=== PATIENT | female | born 1940 | race Caucasian/White ===

== ENCOUNTER 2017-09-13 06:15 | Day surgery (SDC) | payer MEDICARE, SELFPAY ==
[2017-09-13] VITALS (10 sets, daily range): BP systolic 102–180; BP diastolic 60–120; PULSE 55–85; RESP 16–18; TEMP 36.1–37; O2SAT 95–99; BMI 25.2
--- NOTE | 2017-09-13 06:23 | EKG12_ITS ---
Test Reason : PRE OP Blood Pressure : / mmHG Vent. Rate : 052 BPM Atrial Rate : 052 BPM P-R Int : 178 ms QRS Dur : 078 ms QT Int : 436 ms P-R-T Axes : 077 -26 054 degrees QTc Int : 405 ms Sinus bradycardia Leftward axis Inferior NH, age undetermined, cannot be excluded Confirmed by JUAN MANUEL CRUZ, CECILIO ([id number]), order editor ENRIQUE CAZARES ([id number] on 09/14/2017 1:45:53 PM Referred By: Kurt Jon Confirmed By:CECILIO ZAMBRANO MD
[2017-09-13] MEDS: Cefazolin 2 GM in 0.9% Normal Saline 100 ML IV (07:48)
[2017-09-13] MEDS: Bupivacaine Mpf 0.5% 30 ML VIAL (10:55)
--- NOTE | 2017-09-13 10:57 | PCM.DC.HER ---
Discharge Diet: Light diet - advance as tolerated Discharge Activity: Return to Normal Activity, May Not Drive - for 2-3 days or while taking narcotic pain meds., May Shower - with the bandage in place 1-2 days after surgery. Lifting Restrictions: 20 pounds for 4 weeks. Additional Activity Instructions:: Climbing stairs is fine, walking is encouraged. Sitting in bed may be uncomfortable. Sitting up using your lateral muscles (sitting up sideways) is usually more comfortable. Do not drive, work heavy equipment of sign legal documents for 24 hours. Pain medications may cause nausea, you should typically eat light foods as you take your pain medications. Pain medications may also cause constipation. If you have difficulty with this, discuss with your doctor. Call your doctor if your incision/area has: Continuous Slow Oozing, Sudden Increased Bleeding, Increased Pain/ Swelling, Increased Redness, Foul Smelling Discharge Call your doctor if you observe: Fever of 101 or Higher Suture Line Care: Avoid Pulling/Pushing, Avoid Pinching/Bending Change Dressing in (Days):: 3 - Leave steri-strips for 1 week. May protect with a guaze bandaid. Cleanse incision/area with: Keep Dressing Clean & Dry Allergies/Adverse Reactions: Allergies No Known Allergies Allergy (Verified 09/06/17 08:58) Medications to take at Discharge aspirin 81 mg tablet,delayed release 81 mg PO QDAY tab 08/27/17 atenolol 50 mg tablet 50 mg PO QDAY 08/27/17 atorvastatin 20 mg tablet 20 mg PO QDAY 08/27/17 calcium carbonate 600 mg calcium (1,500 mg) tablet 600 mg PO BID tab 08/27/17 cholecalciferol (vitamin D3) 1,000 unit capsule 1,000 unit PO BID cap 08/27/17 glucosamine 375 az-hlqmktayy-zkz no1 500 mg-C 15 mg-naresh 0.5 mg tablet 1 tab PO DAILY 08/27/17 omega 5-mkj-ygp-fish oil 1,000 mg (120 mg-180 mg) capsule 1 cap PO BID 08/27/17 oxybutynin chloride ER 5 mg tablet,extended release 24 hr 5 mg PO QDAY 08/27/17 Hydrocodone Bitart/Apap 5-325 [[place] 5MG-325MG] 1 - 2 tablet PO Q4H PRN PRN 7 Days #10 tablet 09/13/17 The following prescriptions were given: Hydrocodone Bitart/Apap 5-325 [[place] 5MG-325MG] 1 - 2 tablet PO Q4H PRN PRN 7 Days #10 tablet PRN Reason: Pain Primary Care Physician: Daya Parker MD [Primary Care Provider] - Please Follow Up With: Kurt Jon MD When: Please call to schedule 2 week follow up appointment. [phone]
--- NOTE | 2017-09-13 13:06 | PCM.OPRPT ---
Problem List (1) Incarcerated left inguinal hernia Status: Acute (2) Umbilical hernia Status: Acute Qualifiers: Obstruction and gangrene presence: without obstruction or gangrene Qualified Code(s): K42.9 - Umbilical hernia without obstruction or gangrene Report of Operation Date of Procedure: 09/13/17 Pre-Operative Diagnosis: Incarcerated left inguinal hernia Post-Operative Diagnosis: 1. Incarcerated left inguinal hernia. 2. Umbilical hernia Surgery/Procedure Performed:: 1. Robotic assisted laparoscopic left inguinal hernia repair with mesh. 2. Umbilical hernia repair Description of Procedure: The patient was brought back to the operating room and general anesthesia was induced. The patient's abdomen was prepped and draped in usual sterile fashion. Next a midline incision was made superior to the umbilicus and deepened to the fascia. The fascia was elevated and a Veress needle was placed into the abdomen. A drop test was performed and was normal. Next the abdomen was insufflated to 15 mmHg. The needle was then removed and the port was placed through this incision. The camera was then placed through the port and the abdomen was inspected. There appeared to be a recurrence of her umbilical hernia which was repaired in the past as well as adhesions in this area. A left and right lateral 8 mm port were placed under direct visualization. Next moving the camera to 1 of these lateral ports I was able to sharply dissect the adhesions in the midline down as well as reduce the umbilical hernia. The patient was then placed in steep Trendelenburg position. The robot was then docked. Next attention was paid the left lower quadrant. The patient did have a left inguinal hernia which had colon inside of it which was not reducible. The peritoneum was incised superior to the hernia and dissected free until the hernia was reached. Next the hernia was slowly reduced dissecting the hernia sac free from all sides until the colon was able to be reduced into the abdomen. Once the direct hernia was dissected free the round ligament was dissected free. A clip was placed on either side and the round ligament was divided. This allowed a good pocket for the mesh with no contents left in the hernia. Next a piece of pro-competitive shopper mesh was placed into the abdomen and trimmed and placed in the left inguinal region. This was unfolded and provided good coverage of the hernia. The peritoneum was then reapproximated using a running 3-0 V lock suture. This allowed for complete coverage of the mesh with peritoneum. The robot was then undocked. Next attention was paid to the umbilical hernia. A small neeru was made inferior to the umbilicus and using a Charli Wilkes needle a 0 Vicryl suture was used in a gyfuuo-yw-vlviu fashion to close the umbilical defect. Next the midline port was removed and using a Charli Wilkes needle and 0 Vicryl suture was used to provide an interrupted fascial closure of the midline port site. Next the 2 lateral ports were removed and all incisions were anesthetized with lidocaine and closed with interrupted 4-0 Monocryl sutures as well as Steri-Strips and bandages. The patient was taken to PACU in stable condition and she tolerated the procedure well.
--- NOTE | 2017-09-13 13:14 | OP.PCM_ITS ---
Problem List (1) Incarcerated left inguinal hernia Status: Acute (2) Umbilical hernia Status: Acute Qualifiers: Obstruction and gangrene presence: without obstruction or gangrene Qualified Code(s): K42.9 - Umbilical hernia without obstruction or gangrene Report of Operation Date of Procedure: 09/13/17 Pre-Operative Diagnosis: Incarcerated left inguinal hernia Post-Operative Diagnosis: 1. Incarcerated left inguinal hernia. 2. Umbilical hernia Surgery/Procedure Performed:: 1. Robotic assisted laparoscopic left inguinal hernia repair with mesh. 2. Umbilical hernia repair Description of Procedure: The patient was brought back to the operating room and general anesthesia was induced. The patient's abdomen was prepped and draped in usual sterile fashion. Next a midline incision was made superior to the umbilicus and deepened to the fascia. The fascia was elevated and a Veress needle was placed into the abdomen. A drop test was performed and was normal. Next the abdomen was insufflated to 15 mmHg. The needle was then removed and the port was placed through this incision. The camera was then placed through the port and the abdomen was inspected. There appeared to be a recurrence of her umbilical hernia which was repaired in the past as well as adhesions in this area. A left and right lateral 8 mm port were placed under direct visualization. Next moving the camera to 1 of these lateral ports I was able to sharply dissect the adhesions in the midline down as well as reduce the umbilical hernia. The patient was then placed in steep Trendelenburg position. The robot was then docked. Next attention was paid the left lower quadrant. The patient did have a left inguinal hernia which had colon inside of it which was not reducible. The peritoneum was incised superior to the hernia and dissected free until the hernia was reached. Next the hernia was slowly reduced dissecting the hernia sac free from all sides until the colon was able to be reduced into the abdomen. Once the direct hernia was dissected free the round ligament was dissected free. A clip was placed on either side and the round ligament was divided. This allowed a good pocket for the mesh with no contents left in the hernia. Next a piece of pro-alarm signaler mesh was placed into the abdomen and trimmed and placed in the left inguinal region. This was unfolded and provided good coverage of the hernia. The peritoneum was then reapproximated using a running 3-0 V lock suture. This allowed for complete coverage of the mesh with peritoneum. The robot was then undocked. Next attention was paid to the umbilical hernia. A small neeru was made inferior to the umbilicus and using a Charli Wilkes needle a 0 Vicryl suture was used in a givuzh-be-fgrvk fashion to close the umbilical defect. Next the midline port was removed and using a Charli Wilkes needle and 0 Vicryl suture was used to provide an interrupted fascial closure of the midline port site. Next the 2 lateral ports were removed and all incisions were anesthetized with lidocaine and closed with interrupted 4-0 Monocryl sutures as well as Steri- Strips and bandages. The patient was taken to PACU in stable condition and she tolerated the procedure well.
[2017-09-13] MEDS: HYDROcodone Bitartrate/Apap 5/325 Tablet PO (14:37)
== END 2017-09-13 15:55 | disposition home or self-care (01) ==
LOC: SDC 06:15 → AC 06:17
PROVIDERS: Family Provider Family Medicine; PCP Family Medicine; Visit Provider Surgery
PROC: 0YQ64ZZ Repair Left Inguinal Region, Percutaneous Endoscopic Approach (ICD-10-PCS; CPT 49585; principal; 2017-09-13 07:40)
DX: K40.30 Unilateral inguinal hernia, with obstruction, without gangrene, not specified as recurrent (principal); K42.9 Umbilical hernia without obstruction or gangrene; E78.00 Pure hypercholesterolemia, unspecified; I10 Essential (primary) hypertension; Z78.0 Asymptomatic menopausal state; Z90.49 Acquired absence of other specified parts of digestive tract; Z79.82 Long term (current) use of aspirin; Z79.899 Other long term (current) drug therapy
CPT/HCPCS: 49585; 49650; 93005; J7120; J2405

== ENCOUNTER → 2017-11-13 15:52 | Outpatient (CLI) | payer MEDICARE, SELFPAY ==
--- NOTE | 2017-11-13 15:54 | CT_ITS ---
STUDY: CT ABDOMEN AND PELVIS WITH CONTRAST REASON FOR EXAM: Female, 77 years old. LEFT GROIN MASS SINCE HERNIA REPAIR X2 MONTHS AGO SURG-BILAT HERNIA REPAIR RADIATION DOSAGE (If Supplied By Facility): CTDIvol = ( 19.09 ) mGy, DLP = ( 1085.41 ) mGycm TECHNIQUE: Transaxial images were obtained from the dome of the diaphragm to the symphysis pubis with oral contrast. 100CC ml of Isovue 300 contrast was administered. Sagittal and coronal images were reconstructed. Individualized dose optimization techniques were used for this CT. COMPARISON: None. FINDINGS: The visualized lung bases are unremarkable. The visualized portions of the heart are within normal limits. Normal liver. The gallbladder is surgically absent. There is intrahepatic ductal dilation. There is dilation of the common bile duct. Common bile duct stone is not seen. Findings are likely related to the cholecystectomy. Normal spleen. There is diffuse atrophy of the pancreas. Normal bilateral adrenal glands. Normal right kidney. Normal left kidney. Normal visualized stomach. Normal small intestine. There are multiple colonic diverticula consistent with diverticulosis. Stool throughout the colon. There is non-visualization of the appendix. There are calcifications of the abdominal aorta and vascular structures. This is consistent for atherosclerotic disease. There is no abdominal aortic aneurysm. Normal inferior vena cava. Subcentimeter mesenteric lymph nodes. Normal urinary bladder. There is atrophy of the uterus. There is a rim-enhancing septated cystic lesion in the left inguinal canal measuring 30 x 33 x 27 mm. This is 15 Hounsfield units. There are degenerative changes of the osseous structures. CT/Abdomen/Pelvis WITH Contrast IMPRESSION: In the left internal canal there is a fluid collection. Differential includes organized hematoma, seroma, or abscess. Other findings as above. Electronically Signed: Gabe Ashton MD at 20:11 EDT , Service support ,
[2017-11-13 16:20] LABS: CREATININE FINGERSTICK 0.6 mg/dL (0.55-1.02); EGFR FINGERSTICK > 60.0000 mL/min (>60)
== END ==
PROVIDERS: Family Provider Family Medicine; PCP Family Medicine; Visit Provider Surgery
DX: R19.00 Intra-abdominal and pelvic swelling, mass and lump, unspecified site (principal)
CPT/HCPCS: 74177; Q9967

== ENCOUNTER → 2018-09-03 | Outpatient (CLI) | payer MEDICARE, SELFPAY ==
[2017-09-13 06:39] VITALS: BMI 25.2
[2018-09-03 13:31] LABS: BUN 22 mg/dL (7-18); Creatinine, Serum 0.77 mg/dL (0.55-1.02); Glucose 92 mg/dL (74-106)
[2018-09-03 13:32] LABS: AST(SGOT) 26 U/L (15-37); Alanine Aminotransfer ALT/SGPT 38 U/L (13-56); Anion Gap 3 (5-15); BUN/Creat Ratio 28.5 RATIO (10-20); Chloride 108 mmol/L (98-107); Cholesterol 174 mg/dL (200); EST Glomerular Filtration Rate 77 mL/min (>60); Est Glom Filt Rate - Afr Amer 93 mL/min (>60); High Density Lipoprotein 71 mg/dL; Potassium 4.3 mmol/L (3.5-5.1); Sodium Level 139 mmol/L (136-145); Triglycerides 134 mg/dL; Very Low Density Lipoprotein 27 mg/dL (5-40)
== END | disposition home or self-care (01) ==
PROVIDERS: Family Provider Family Medicine; PCP Family Medicine; Referring Provider Family Medicine; Visit Provider Family Medicine
DX: E78.5 Hyperlipidemia, unspecified (principal); I10 Essential (primary) hypertension
CPT/HCPCS: 36415; 80048; 80061; 84450; 84460

== ENCOUNTER → 2019-12-11 08:13 | Outpatient (CLI) | payer MEDICARE, SELFPAY ==
[2017-09-13 06:39] VITALS: BMI 25.2
[2019-12-11 10:38] LABS: BUN 19 mg/dL (7-18); Creatinine, Serum 0.96 mg/dL (0.55-1.02); Glucose 102 mg/dL (74-106)
[2019-12-11 10:39] LABS: AST(SGOT) 18 U/L (15-37); Alanine Aminotransfer ALT/SGPT 25 U/L (13-56); Anion Gap 5 (5-15); BUN/Creat Ratio 19.8 RATIO (10-20); Chloride 108 mmol/L (98-107); Cholesterol 158 mg/dL (200); EST Glomerular Filtration Rate 60 mL/min (>60); Est Glom Filt Rate - Afr Amer 72 mL/min (>60); High Density Lipoprotein 60 mg/dL; Potassium 4.3 mmol/L (3.5-5.1); Sodium Level 142 mmol/L (136-145); Triglycerides 135 mg/dL; Very Low Density Lipoprotein 27 mg/dL (5-40)
== END ==
PROVIDERS: PCP Family Medicine; Referring Provider Family Medicine; Visit Provider Family Medicine
DX: E78.5 Hyperlipidemia, unspecified (principal); I10 Essential (primary) hypertension
CPT/HCPCS: 36415; 80048; 80061; 84450; 84460

== ENCOUNTER → 2020-03-17 14:05 | Outpatient (CLI) | payer MEDICARE, SELFPAY ==
[2017-09-13 06:39] VITALS: BMI 25.2
[2020-03-19 07:19] LABS: SARS-COV-2 TOTAL ABS Nonreactive (Nonreactive)
== END ==
PROVIDERS: PCP Family Medicine; Referring Provider Family Medicine; Visit Provider Family Medicine
DX: Z20.828 Contact with and (suspected) exposure to other viral communicable diseases (principal)
CPT/HCPCS: 36415; 86769

== ENCOUNTER → 2020-03-30 10:36 | Outpatient (CLI) | payer MEDICARE, SELFPAY ==
--- NOTE | 2020-03-30 10:43 | BD_ITS ---
STUDY: DUAL ENERGY X-RAY ABSORPTIOMETRY / DXA REASON FOR EXAM: Female, 79 years old. 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 COMPARISON: Comparison is made with prior study dated 04/06/2016. FINDINGS: Lumbar Spine (L1-L4): g/cm2 (1.149) / T-score (-0.1) / Z-score (1.7) Findings are suggestive of normal bone density with a low fracture risk. Increased thoracic kyphosis. Left Femur Total: g/cm2 (0.839) / T-score (-1.3) / Z-score (0.7) Left Femoral Neck: g/cm2 (0.867) / T-score (-1.2) / Z-score (0.9) Right Femur Total: g/cm2 (0.807) / T-score (-1.6) / Z-score (0.4) Right Femoral Neck: g/cm2 (0.787) / T-score (-1.8) / Z-score (0.4) The T-Scores on the most recent prior examination were: Lumbar Spine (L1-L4): There has been improvement of bone density since the previous examination. Left Femur Total: which represents a worsening of 1.1%. Right Femur Total: which represents a worsening of 2.9%. BD/Dexa Bone Density Study IMPRESSION: The patient is considered osteopenic as outlined below according to World Jose Organization (WHO) criteria with a moderate fracture risk. There has been worsening of bone density since the previous examination. Reference Information: The T-score is the number of standard deviations above or below the standard which is normal for young adults at their peak bone mineral density. The World Health Organization (WHO) interprets the T-scores as follows: Above -1 Normal bone density Between -1 and -2.5 Osteopenia Equal to / or below -2.5 Osteoporosis As a practical clinical guideline, osteopenia may be graded as follows: Mild -1 through -1.5 Moderate -1.6 through -2.0 Severe -2.1 through -2.4 The Z-score is the number of standard deviations above or below age-matched controls. A Z-score of less than -1.5 would be considered abnormal. References: 1. NIH Osteoporosis and Related Bone Diseases www osteo.org 2. International Society for Clinical Densitometry www iscd.org 3. National Osteoporosis Foundation www nof.org Electronically Signed: Kevin Keyes, at 9:07 EST , Service support ,
== END ==
PROVIDERS: PCP Family Medicine; Referring Provider Family Medicine; Visit Provider Family Medicine
DX: N95.9 Unspecified menopausal and perimenopausal disorder (principal)
CPT/HCPCS: 77080

== ENCOUNTER 2020-04-27 16:42 | Emergency (ER) | payer MEDICARE, SELFPAY ==
[2020-04-27] VITALS (7 sets, daily range): BP systolic 137–190; BP diastolic 68–95; PULSE 65–79; RESP 15–17; TEMP 35.9; O2SAT 95–98; BMI 29.2
--- NOTE | 2020-04-27 16:45 | ED.RN ---
FAMILY, SON WATSON PHONE NUMBER [phone]
--- NOTE | 2020-04-27 16:58 | EKG12_ITS ---
Test Reason : COUGH Blood Pressure : / mmHG Vent. Rate : 067 BPM Atrial Rate : 067 BPM P-R Int : 154 ms QRS Dur : 070 ms QT Int : 390 ms P-R-T Axes : 052 -13 046 degrees QTc Int : 412 ms Normal sinus rhythm Possible Inferior infarct , age undetermined Abnormal ECG Confirmed by ROSY CRUZ, LAUREANO ([id number]), editor at large LAURA BOYER ([id number]) on 04/28/2020 1:41:33 PM Referred By: Confirmed By:BERNARD GALLEGOS MD
--- NOTE | 2020-04-27 16:58 | ED.DCSUM_ITS ---
History of Present Illness Chief Complaint: Cough Narrative: This patient is an 79-year-old female who states she just does not feel good. She has had generalized malaise for about 1 day. She states she feels like she has the flu. She does complain of muscle and joint aches. She has mild rhinorrhea and a mild cough. No fever. No sore throat. No chest pain or difficulty breathing. No nausea vomiting or diarrhea. No abdominal pain. Past Medical History - Allergies and Home Meds Allergies/Adverse Reactions: Allergies No Known Allergies Allergy (Verified 04/27/20 16:42) Primary Care Physician: Daya Parker MD [Primary Care Provider] - Past Medical History: - - Hypertension, hyperlipidemia Smoking Status: Never smoker Review of Systems All systems negative except as indicated General: Denies: Fever Eyes: Denies: Visual changes - bilaterally ENT: Reports: Rhinorrhea. Denies: Bilateral ear pain Cardiovascular: Denies: Chest pain Respiratory: Reports: Cough. Denies: Dyspnea Gastrointestinal: Denies: Abdominal pain, Nausea, Vomiting, Diarrhea Musculoskeletal: Reports: Myalgias, Arthralgias Skin: Denies: Rash Neurological: Denies: Headache Hematologic: Denies: Easy bruising Allergy: Denies: Uticaria Physical Exam Vital Signs/Narrative: Vital Signs Temp Pulse Resp BP Pulse Ox 04/27/20 16:43 96.6 F L 72 17 184/87 H 95 Inital Vital Signs reviewed: Yes General: Well nourished Head: Normocephalic Eyes: EOMI ENT: Moist mucous membranes Neck: Supple Cardiovascular: Regular rate, Regular rhythm Respiratory: No distress, CTA bilaterally Abdomen: Soft, Nontender Skin: Normal color Neurological: Alert Psychological: Normal affect Diagnostic/Tx/Re-eval Impressions Chest X-Ray 04/27/20 17:10 IMPRESSION: No definite acute or significant abnormality seen. Electronically Signed: Olaf Villanueva MD at 17:32 EST , Service support , 04/27/20 17:10 Chest 1 View (Portable) [RAD] Stat 04/27/20 17:15 Mucosa - Nose SARS-CoV-2 Antigen (Rapid) - Final Laboratory Results 04/27/20 04/27/20 04/27/20 17:25 17:25 17:30 WBC 6.2 RBC 4.16 L Hgb 13.2 Hct 39.5 MCV 95.0 MCH 31.7 MCHC 33.4 RDW Std Deviation 48.3 H RDW Coeff of Blanca 13.8 Plt Count 217 MPV 10.3 Immature Gran % (Auto) 0.500 Neut % (Auto) 74.5 H Lymph % (Auto) 15.4 L [place] % (Auto) 8.6 Eos % (Auto) 0.5 Baso % (Auto) 0.5 Absolute Neuts (auto) 4.6 Absolute Lymphs (auto) 0.95 Nucleated RBC % 0 Sodium 135 L Potassium 3.6 Chloride 104 Carbon Dioxide 26.0 Anion Gap 5 BUN 18 Creatinine 0.96 Estim Creat Clear Calc 42.06 Est GFR (MDRD) Af Amer 72 Est GFR (MDRD) Non-Af 60 BUN/Creatinine Ratio 18.8 Glucose 99 Calcium 9.4 Total Bilirubin 0.40 AST 24 ALT 27 Alkaline Phosphatase 111 Total Protein 7.6 Albumin 3.7 Globulin 3.9 Albumin/Globulin Ratio 0.9 Urine Color Yellow Urine Clarity Clear Urine pH 6.5 Ur Specific [place] 1.010 Urine Protein Negative Urine Glucose (UA) Normal Urine Ketones Negative Urine Occult Blood Negative Urine Nitrite Positive H Urine Bilirubin Negative Urine Urobilinogen Normal Ur Leukocyte Esterase 100 H Urine RBC 0 SEEN Urine WBC 0-5 SEEN Ur Squamous Epith Cells 0-5 SEEN Urine Bacteria 2+ Urine Mucus 0 SEEN - Medical Decision Making EKG shows normal sinus rhythm no acute ischemic changes. Serum labs essentially unremarkable. Urinalysis does show leukocyte esterase and nitrites and bacteria. She was given IV Rocephin and cultures were obtained. Patient will be discharged on Keflex. She does understand return for new or worsening symptoms and was advised on specific signs and symptoms to monitor for. Patient was discharged. ED Disposition - Plan for ED Patient: Disposition: Home or Assisted Living Diagnosis: UTI (urinary tract infection) Instructions: ED Bladder Infection, Female (Adult) Prescriptions: Cephalexin [Keflex] 500 mg PO Q12 #14 cap Prescription Printed Referrals: Daya Parker MD [Primary Care Provider] -
--- NOTE | 2020-04-27 17:10 | RAD_ITS ---
STUDY: X-RAY CHEST REASON FOR EXAM: Female, 79 years old. COUGH, CHILLS, ACHES AND WEAKNESS SINCE YESTERDAY TECHNIQUE: Single AP portable view of the chest. I COMPARISON: None. FINDINGS: Limited by significant rotation to the left. The lungs are clear and expanded. There is no demonstrated pleural abnormality. Normal size heart. Normal mediastinum and raghav. Normal visualized pulmonary arteries. Normal visualized aortic arch and descending thoracic aorta. Normal visualized thoracic spine. Normal visualized ribs, clavicles, and shoulders. There is no demonstrated abnormality of the visualized soft tissue structures of the upper abdomen. RAD/Chest 1 View (Portable) IMPRESSION: No definite acute or significant abnormality seen. Electronically Signed: Olaf Villanueva MD at 17:32 EST , Service support ,
[2020-04-27 17:38] LABS: Mucous, Urine 0 SEEN /hpf (<or=2+); Red Blood Cells-Urine 0 SEEN /hpf (0-5)
[2020-04-27 17:39] LABS: Color, Urine Yellow (Yellow); Glucose, Dipstick Normal (Normal); Ketone-Dipstick Negative (Negative); Leukocyte Esterase-Dipstick 100 /ul (Negative); Nitrite-Dipstick Positive (Negative); Occult Blood-Urine Negative /ul (Negative); Protein-Dipstick Negative (Negative); Urine Bilirubin Dipstick Negative (Negative); Urine Clarity Clear (Clear); Urine Urobilinogen Normal (Normal); Urine pH 6.5 (5.0 - 8.0)
[2020-04-27 17:39] LABS: Absolute Lymphocyte Count 0.95 X10^3/uL (0.83-4.51); Absolute Neutrophil Count 4.6 X10^3/uL (2.0-7.7); Basophil# 0.03 X10^3/uL; Basophil% 0.5 % (0-1); Eosinophil# 0.03 X10^3/uL; Eosinophils% 0.5 % (0-5); Hematocrit 39.5 % (37-47); Hemoglobin 13.2 g/dL (12.0-15.0); Lymphocyte # 0.95 X10^3/ul (4.0); Lymphocyte % 15.4 % (19-41); Mean Corp Hgb Conc 33.4 g/dL (32-36); Mean Corpuscular Hgb 31.7 pg (27.0-32.0); Mean Platelet Vol. 10.3 fl (6.2-12.0); Monocyte# 0.53 X10^3/uL; Monocyte% 8.6 % (0-10); NRBC Flagged by Analyzer 0 % (0-5); Neutrophil # 4.59 X10^3/uL (2.7-7.7); Neutrophil % 74.5 % (47-70); Platelet Count 217 K/mm3 (150-450); RBC Distribution Width CV 13.8 % (11.6-14.6); RBC Distribution Width SD 48.3 fl (35.1-43.9); Red Blood Count 4.16 M/mm3 (4.2-5.4); White Blood Count 6.2 K/mm3 (4.4-11.0)
[2020-04-27 18:06] LABS: Bacteria 2+ /hpf (None Seen); Squamous Epithelial Cells - UA 0-5 SEEN /hpf (5-10); White Blood Cells 0-5 SEEN /hpf (0-5)
[2020-04-27 18:42] LABS: BUN 18 mg/dL (7-18); Creatinine, Serum 0.96 mg/dL (0.55-1.02); EST Glomerular Filtration Rate 60 mL/min (>60); Estimated Creatinine Clearance 42.06 ml/min; Glucose 99 mg/dL (74-106)
[2020-04-27 18:43] LABS: ALB/GLOB Ratio 0.9 RATIO (0.9-2.4); AST(SGOT) 24 U/L (15-37); Alanine Aminotransfer ALT/SGPT 27 U/L (13-56); Albumin, Serum 3.7 g/dL (3.2-5.0); Alkaline Phosphatase 111 U/L (45-117); Anion Gap 5 (5-15); BUN/Creat Ratio 18.8 RATIO (10-20); Calcium,Total 9.4 mg/dL (8.5-10.1); Chloride 104 mmol/L (98-107); Est Glom Filt Rate - Afr Amer 72 mL/min (>60); Globulin 3.9 g/dL (2.2-4.2); Potassium 3.6 mmol/L (3.5-5.1); Protein, Total 7.6 g/dL (6.4-8.2); Sodium Level 135 mmol/L (136-145)
[2020-04-27] MEDS: Ceftriaxone 1 GM/50 ML BAG IV (18:59)
== END 2020-04-27 19:44 | disposition home or self-care (01) ==
PROVIDERS: Emergency Provider Emergency Medicine; PCP Family Medicine
DX: N39.0 Urinary tract infection, site not specified (principal); I10 Essential (primary) hypertension; E78.5 Hyperlipidemia, unspecified; Z79.82 Long term (current) use of aspirin
CPT/HCPCS: 71045; 80053; 81001; 85025; 87077; 87086; 87088; 87186; 87426; 93005; 96365; 99282; J7050

== ENCOUNTER → 2020-05-05 15:45 | Outpatient (CLI) | payer MEDICARE, SELFPAY ==
[2020-04-27 16:43] VITALS: BMI 29.2
[2020-05-05 18:09] LABS: Absolute Lymphocyte Count 0.71 X10^3/uL (0.83-4.51); Basophil# 0.02 X10^3/uL; Basophil% 0.4 % (0-1); Eosinophil# 0.02 X10^3/uL; Eosinophils% 0.4 % (0-5); Hematocrit 42.1 % (37-47); Hemoglobin 13.9 g/dL (12.0-15.0); Lymphocyte # 0.71 X10^3/ul (4.0); Lymphocyte % 13.4 % (19-41); Mean Corpuscular Hgb 30.9 pg (27.0-32.0); Mean Corpuscular Volume 93.6 fL (81-99); Mean Platelet Vol. 11.3 fl (6.2-12.0); Monocyte# 0.51 X10^3/uL; Monocyte% 9.6 % (0-10); NRBC Flagged by Analyzer 0 % (0-5); Neutrophil # 3.99 X10^3/uL (2.7-7.7); Neutrophil % 75.4 % (47-70); Platelet Count 200 K/mm3 (150-450); RBC Distribution Width CV 13.7 % (11.6-14.6); RBC Distribution Width SD 46.7 fl (35.1-43.9); White Blood Count 5.3 K/mm3 (4.4-11.0)
[2020-05-05 18:16] LABS: Anion Gap 10 (5-15); BUN 24 mg/dL (7-18); BUN/Creat Ratio 16.3 RATIO (10-20); Calcium,Total 8.7 mg/dL (8.5-10.1); Chloride 104 mmol/L (98-107); Creatinine, Serum 1.47 mg/dL (0.55-1.02); EST Glomerular Filtration Rate 36 mL/min (>60); Est Glom Filt Rate - Afr Amer 44 mL/min (>60); Glucose 123 mg/dL (74-106); Potassium 3.6 mmol/L (3.5-5.1); Sodium Level 135 mmol/L (136-145)
== END ==
PROVIDERS: PCP Family Medicine; Referring Provider Family Medicine; Visit Provider Family Medicine
DX: R19.7 Diarrhea, unspecified (principal)
CPT/HCPCS: 36415; 80048; 85025

== ENCOUNTER 2020-06-28 01:25 | Emergency (ER) | payer MEDICARE, SELFPAY ==
[2020-04-27 16:43] VITALS: BMI 29.2
[2020-06-28 01:25] VITALS: PULSE 66; RESP 18; TEMP 36.4; O2SAT 97; BMI 27.2
--- NOTE | 2020-06-28 01:43 | CT_ITS ---
STUDY: CT ABDOMEN AND PELVIS WITH CONTRAST REASON FOR EXAM: Female, 79 years old. Right lower quadrant pain for one day. RADIATION DOSAGE (If Supplied By Facility): CTDIvol = ( 13.33 ) mGy, DLP = ( 784.72 ) mGycm TECHNIQUE: Transaxial images were obtained from the dome of the diaphragm to the symphysis pubis without oral contrast. IV 100mL Isovue-370 was administered. Sagittal and coronal images were reconstructed. Individualized dose optimization techniques were used for this CT. COMPARISON: November 13, 2017. FINDINGS: The visualized lung bases are unremarkable. The visualized portions of the heart are within normal limits. Normal liver. There are surgical clips in the gallbladder fossa consistent with a prior cholecystectomy. Normal spleen. Normal pancreas. Normal bilateral adrenal glands. Normal right kidney. Normal left kidney. Normal visualized stomach. Normal small intestine. Stool is present throughout the colon which may represent constipation. Scattered colonic diverticulosis. Appendix not visualized. Appearance of the abdomen does not suggest acute appendicitis. There is atherosclerotic calcification of the abdominal aorta, without a demonstrated aneurysm. Normal inferior vena cava. Normal retroperitoneum. No intra-abdominal free air. Normal urinary bladder. Uterus is grossly normal. No adnexal masses seen. Normal abdominal wall. Degenerative changes of the lower thoracic and lumbar spine. CT/Abdomen/Pelvis W IV Cont ONLY IMPRESSION: No acute findings or pelvis. Appendix not visualized. No secondary signs of acute appendicitis. Consider constipation. Mild colonic diverticulosis. Electronically Signed: Cristian Brar MD at 3:11 EST , Service support ,
--- NOTE | 2020-06-28 01:46 | EKG12_ITS ---
Test Reason : ABDOMINAL PAIN Blood Pressure : / mmHG Vent. Rate : 060 BPM Atrial Rate : 060 BPM P-R Int : 176 ms QRS Dur : 088 ms QT Int : 406 ms P-R-T Axes : 063 -20 043 degrees QTc Int : 406 ms Normal sinus rhythm Possible Left atrial enlargement Possible Inferior infarct , age undetermined Abnormal ECG Confirmed by ANUPAMA CRUZ, JES ([id number]), editor index LAURA BOYER ([id number]) on 06/28/2020 1:17:15 PM Referred By: VERONA Confirmed By:JES ALTMAN MD
[2020-06-28 01:53] LABS: Absolute Lymphocyte Count 1.78 X10^3/uL (0.83-4.51); Absolute Neutrophil Count 5.1 X10^3/uL (2.0-7.7); Basophil# 0.06 X10^3/uL; Basophil% 0.8 % (0-1); Eosinophil# 0.27 X10^3/uL; Eosinophils% 3.5 % (0-5); Hematocrit 41.3 % (37-47); Hemoglobin 13.3 g/dL (12.0-15.0); Lymphocyte # 1.78 X10^3/ul (4.0); Mean Corp Hgb Conc 32.2 g/dL (32-36); Mean Corpuscular Hgb 31.1 pg (27.0-32.0); Mean Corpuscular Volume 96.7 fL (81-99); Mean Platelet Vol. 9.9 fl (6.2-12.0); Monocyte# 0.52 X10^3/uL; Monocyte% 6.7 % (0-10); NRBC Flagged by Analyzer 0 % (0-5); Neutrophil # 5.08 X10^3/uL (2.7-7.7); Neutrophil % 65.7 % (47-70); Platelet Count 280 K/mm3 (150-450); RBC Distribution Width CV 14.6 % (11.6-14.6); RBC Distribution Width SD 51.7 fl (35.1-43.9); Red Blood Count 4.27 M/mm3 (4.2-5.4); White Blood Count 7.7 K/mm3 (4.4-11.0)
[2020-06-28] MEDS: 0.9% Normal Saline 1,000 ML 125 ML IV (01:59)
[2020-06-28] MEDS: Morphine 4 MG/ML Syringe IV (01:59)
--- NOTE | 2020-06-28 02:05 | ED.DCSUM_ITS ---
History of Present Illness Chief Complaint: Abd Pain Informant: Patient - Abdominal Pain/Flank Pain Onset: Today Context: Gradual Onset Timing: Continuous Quality: Sharp Location: RLQ - Nausea/Vomiting/Emesis GI Symptom: Negative for: Nausea, Vomiting - Diarrhea/Melena/Hematochezia GI Symptom: Negative for: Diarrhea, Melena, Hematochezia Associated Symptoms: Negative for: Dysuria, Frequency Narrative: Patient is an 79-year-old female presenting with abdominal pain. Stated it started around 10 AM this morning and progressively worsened. She states it is worse when she is active. Patient try to go to bed tonight but the pain was too severe so she came to the emergency room. She states it is mostly on her right side and specifically in her right lower quadrant. She states when she was driving here any bumps in the road significantly worsen the pain. She denies any associated fever, chills, chest pain, shortness of breath, nausea, vomiting or change in bowel habits. States she has had normal urination. States she is never had pain like this before. Does have a history of hernia as well as gallbladder surgery. No other complaints at this time. Past Medical History - Allergies and Home Meds Allergies/Adverse Reactions: Allergies meperidine [From Demerol] Allergy (Verified 06/28/20 01:29) Hives Primary Care Physician: Kurt Jon MD [STAFF PHYSICIAN] - Daya Parker MD [Primary Care Provider] - Past Medical History: - - Hypertension, hyperlipidemia Surgical History: cholecystectomy, herniorrhaphy Lives: Spouse/ Significant Other Smoking Status: Never smoker Review of Systems General: Denies: Chills, Fever, Sweats Eyes: Denies: Visual changes - bilaterally, Diplopia ENT: Denies: Rhinorrhea, Sore throat Cardiovascular: Denies: Chest pain, Palpitations Respiratory: Denies: Dyspnea, Cough, Dyspnea on exertion Gastrointestinal: Reports: Abdominal pain. Denies: Nausea, Vomiting, Diarrhea, Melena, Hematochezia Genitourinary: Denies: Dysuria, Hematuria, Frequency Musculoskeletal: Denies: Back pain, Extremity Pain Skin: Denies: Rash, Wounds Neurological: Denies: Headache, Weakness, Numbness Physical Exam Vital Signs/Narrative: Vital Signs Temp Pulse Resp Pulse Ox 06/28/20 01:25 97.6 F L 66 18 97 Inital Vital Signs reviewed: Yes General: Well nourished, Well developed, No Acute Distress Head: Normocephalic, Atraumatic Eyes: Perrl, EOMI ENT: Moist mucous membranes, No rhinorrhea Neck: Supple, Nontender Cardiovascular: Regular rate, Regular rhythm, No murmurs Respiratory: No distress, CTA bilaterally, Chest nontender Abdomen: Soft, Nondistended, No masses, Tender - Right lower quadrant pain. Pain at McBurney's point., Rebound tenderness, Hypoactive bowel sounds. Negative for: Guarding, Pulsatile mass Back: Nontender, Normal Inspection Extremities: Nontender, No edema Skin: Normal color, No rash Neurological: Alert, Oriented x3, Cranial nerves II-XII grossly intact, Normal Strength, Normal Sensation Psychological: Normal affect, Normal Mood Diagnostic/Tx/Re-eval Clinical Impression(s) from Imaging Studies Abdomen/Pelvis CT 06/28/20 01:43 IMPRESSION: No acute findings or pelvis. Appendix not visualized. No secondary signs of acute appendicitis. Consider constipation. Mild colonic diverticulosis. Electronically Signed: Cristian Brar MD at 3:11 EST , Service support , Laboratory Data 06/28/20 06/28/20 06/28/20 01:34 01:34 01:53 WBC 7.7 RBC 4.27 Hgb 13.3 Hct 41.3 MCV 96.7 MCH 31.1 MCHC 32.2 RDW Std Deviation 51.7 H RDW Coeff of Blanca 14.6 Plt Count 280 MPV 9.9 Immature Gran % (Auto) 0.300 Neut % (Auto) 65.7 Lymph % (Auto) 23.0 [place] % (Auto) 6.7 Eos % (Auto) 3.5 Baso % (Auto) 0.8 Absolute Neuts (auto) 5.1 Absolute Lymphs (auto) 1.78 Nucleated RBC % 0 Sodium 140 Potassium 3.7 Chloride 105 Carbon Dioxide 30.0 Anion Gap 5 BUN 20 H Creatinine 0.92 Estim Creat Clear Calc 45.66 Est GFR (MDRD) Af Amer 75 Est GFR (MDRD) Non-Af 62 BUN/Creatinine Ratio 21.7 H Glucose 109 H Calcium 10.2 H Troponin I < 0.015 Lipase 106 Urine Color Yellow Urine Clarity Clear Urine pH 7.0 Ur Specific [place] 1.010 Urine Protein Negative Urine Glucose (UA) Normal Urine Ketones Negative Urine Occult Blood Negative Urine Nitrite Negative Urine Bilirubin Negative Urine Urobilinogen Normal Ur Leukocyte Esterase 100 H Urine RBC 0 SEEN Urine WBC 5-10 SEEN Ur Squamous Epith Cells 0-5 SEEN Urine Bacteria 0 SEEN Urine Mucus 0 SEEN - Rhythm Strip Rhythm Strip: Sinus Rhythm Rate: 60 Ectopy: None - EKG Initial EKG Interpretation: Sinus Rhythm, - - Normal sinus rhythm at a rate of 60 Slight left axis Normal intervals Normal ST segments Interpreted by emergency medicine physician - Medical Decision Making Patient evaluated for 1 day of abdominal pain. It is right-sided. Pain has become more severe so she came to the emergency room. She does not really have any other associated symptoms. Patient is given morphine for pain control. Lab work is checked as well as CT of abdomen pelvis to rule out any acute surgical/infectious abnormalities. While the [place] is not visualized patient does not have any secondary findings consistent with acute appendicitis and also has a normal white blood cell count. I think this is much less likely. She does have moderate stool burden right in the area of her pain and constipation is likely the cause of her pain. She is not pain out of proportion I do not think this is mesenteric ischemia. Her vital signs are stable in the emergency room. ED Disposition - Plan for ED Patient: Disposition: Home or Assisted Living Diagnosis: Abdominal pain of unknown etiology, Constipation Instructions: ED Abdominal Pain Unkn Cause Fem, ED Constipation (Adult) Prescriptions: Dicyclomine HCl [Bentyl] 20 mg PO TIDAC #20 cap Transmission Status: Pending to [facility] Referrals: Daya Parker MD [Primary Care Provider] - Kurt Jon MD [STAFF PHYSICIAN] - Additional Instructions: The exact cause of your abdominal pain is not clear however does not appear to be any acute surgical abnormality such as acute appendicitis. There is no findings of acute infection such as diverticulitis. Is possible this could be from constipation/gas pains. I recommend starting Colace and MiraLAX to help. You can buy these [id number] and take once to twice a day. It does take 48 hours to be fully effective. Please follow-up with your primary care doctor or surgeon as needed. Return the emergency room with any worsening pains, chest pain or fevers. The blood pressure was elevated so please make sure you take your blood pressure medication when you get home like you normally would.
[2020-06-28 02:07] LABS: Anion Gap 5 (5-15); BUN 20 mg/dL (7-18); BUN/Creat Ratio 21.7 RATIO (10-20); Calcium,Total 10.2 mg/dL (8.5-10.1); Chloride 105 mmol/L (98-107); Creatinine, Serum 0.92 mg/dL (0.55-1.02); EST Glomerular Filtration Rate 62 mL/min (>60); Est Glom Filt Rate - Afr Amer 75 mL/min (>60); Estimated Creatinine Clearance 45.66 ml/min; Glucose 109 mg/dL (74-106); Lipase 106 U/L (73-393); Potassium 3.7 mmol/L (3.5-5.1); Sodium Level 140 mmol/L (136-145)
[2020-06-28 02:08] LABS: Bacteria 0 SEEN /hpf (None Seen); Mucous, Urine 0 SEEN /hpf (<or=2+); Red Blood Cells-Urine 0 SEEN /hpf (0-5)
[2020-06-28 02:11] LABS: Color, Urine Yellow (Yellow); Glucose, Dipstick Normal (Normal); Ketone-Dipstick Negative (Negative); Leukocyte Esterase-Dipstick 100 /ul (Negative); Nitrite-Dipstick Negative (Negative); Occult Blood-Urine Negative /ul (Negative); Protein-Dipstick Negative (Negative); Urine Bilirubin Dipstick Negative (Negative); Urine Clarity Clear (Clear); Urine Urobilinogen Normal (Normal)
[2020-06-28 02:19] LABS: Squamous Epithelial Cells - UA 0-5 SEEN /hpf (5-10); White Blood Cells 5-10 SEEN /hpf (0-5)
[2020-06-28 03:38] VITALS: BP 193/58; PULSE 53; RESP 16; O2SAT 97
[2020-06-28] MEDS: Dicyclomine 10 MG Capsule 20 MG PO (03:40)
== END 2020-06-28 04:03 | disposition home or self-care (01) ==
PROVIDERS: Emergency Provider Emergency Medicine; PCP Family Medicine
DX: R10.31 Right lower quadrant pain (principal); K59.00 Constipation, unspecified; I10 Essential (primary) hypertension; E78.5 Hyperlipidemia, unspecified; Z90.49 Acquired absence of other specified parts of digestive tract; Z79.82 Long term (current) use of aspirin
CPT/HCPCS: 74177; 80048; 81001; 83690; 84484; 85025; 87086; 87088; 87426; 93005; 96361; 96374; 99285; Q9967; A4216

== ENCOUNTER → 2021-03-21 10:32 | Outpatient (CLI) | payer MEDICARE, SELFPAY ==
[2021-03-21 13:38] LABS: AST(SGOT) 19 U/L (15-37); Alanine Aminotransfer ALT/SGPT 23 U/L (13-56); Cholesterol 156 mg/dL (200); High Density Lipoprotein 63 mg/dL; Triglycerides 137 mg/dL; Very Low Density Lipoprotein 27 mg/dL (5-40)
== END ==
PROVIDERS: PCP Family Medicine; Referring Provider Family Medicine; Visit Provider Family Medicine
DX: E78.5 Hyperlipidemia, unspecified (principal)
CPT/HCPCS: 36415; 80061; 84450; 84460

== ENCOUNTER → 2021-04-19 16:18 | Outpatient (CLI) | payer MEDICARE, SELFPAY ==
[2021-04-19 17:46] LABS: Anion Gap 7 (5-15); BUN 25 mg/dL (7-18); BUN/Creat Ratio 30.7 RATIO (10-20); Calcium,Total 8.9 mg/dL (8.5-10.1); Chloride 104 mmol/L (98-107); Creatinine, Serum 0.82 mg/dL (0.55-1.02); EST Glomerular Filtration Rate 72 mL/min (>60); Est Glom Filt Rate - Afr Amer 87 mL/min (>60); Glucose 117 mg/dL (74-106); Potassium 3.5 mmol/L (3.5-5.1); Sodium Level 138 mmol/L (136-145)
== END ==
PROVIDERS: PCP Family Medicine; Referring Provider Family Medicine; Visit Provider Family Medicine
DX: I10 Essential (primary) hypertension (principal)
CPT/HCPCS: 36415; 80048

== ENCOUNTER → 2021-10-19 | Outpatient (CLI) | payer MEDICARE, SELFPAY ==
[2021-10-19 18:09] LABS: AST(SGOT) 20 U/L (15-37); Alanine Aminotransfer ALT/SGPT 25 U/L (13-56); Anion Gap 5 (5-15); BUN 24 mg/dL (7-18); BUN/Creat Ratio 25.1 RATIO (10-20); Calcium,Total 8.9 mg/dL (8.5-10.1); Chloride 104 mmol/L (98-107); Cholesterol 147 mg/dL (200); Creatinine, Serum 0.96 mg/dL (0.55-1.02); EST Glomerular Filtration Rate 60 mL/min (>60); Est Glom Filt Rate - Afr Amer 72 mL/min (>60); Glucose 101 mg/dL (74-106); High Density Lipoprotein 60 mg/dL; Potassium 3.7 mmol/L (3.5-5.1); Sodium Level 138 mmol/L (136-145); Triglycerides 121 mg/dL; Very Low Density Lipoprotein 24 mg/dL (5-40)
== END | disposition home or self-care (01) ==
LOC: MFPLAB 15:53
PROVIDERS: PCP Family Medicine; Referring Provider Family Medicine; Visit Provider Family Medicine
DX: E78.5 Hyperlipidemia, unspecified (principal); I10 Essential (primary) hypertension
CPT/HCPCS: 36415; 80048; 80061; 84450; 84460

== ENCOUNTER → 2022-10-20 | Outpatient (CLI) | payer MEDICARE, SELFPAY ==
[2022-10-20 12:51] LABS: AST(SGOT) 21 U/L (15-37); Alanine Aminotransfer ALT/SGPT 24 U/L (13-56); Anion Gap 7 (5-15); BUN 21 mg/dL (7-18); BUN/Creat Ratio 19.4 RATIO (10-20); Calcium,Total 9.7 mg/dL (8.5-10.1); Chloride 105 mmol/L (98-107); Cholesterol 156 mg/dL (200); Creatinine, Serum 1.08 mg/dL (0.55-1.02); EST Glomerular Filtration Rate 52 mL/min (>60); Est Glom Filt Rate - Afr Amer 62 mL/min (>60); Glucose 103 mg/dL (74-106); High Density Lipoprotein 62 mg/dL; Potassium 4.4 mmol/L (3.5-5.1); Sodium Level 137 mmol/L (136-145); Triglycerides 145 mg/dL; Very Low Density Lipoprotein 29 mg/dL (5-40)
== END | disposition home or self-care (01) ==
LOC: MTLAB 10:22
PROVIDERS: PCP Family Medicine; Referring Provider Family Medicine; Visit Provider Family Medicine
DX: E78.5 Hyperlipidemia, unspecified (principal); I10 Essential (primary) hypertension
CPT/HCPCS: 36415; 80048; 80061; 84450; 84460

== ENCOUNTER → 2023-12-17 | Outpatient (CLI) | payer MEDICARE, SELFPAY ==
[2023-12-17 17:52] LABS: AST(SGOT) 27 U/L (15-37); Alanine Aminotransfer ALT/SGPT 28 U/L (13-56); Anion Gap 7 (5-15); BUN 31 mg/dL (7-18); BUN/Creat Ratio 26.1 RATIO (10-20); Calcium,Total 9.4 mg/dL (8.5-10.1); Chloride 106 mmol/L (98-107); Cholesterol 165 mg/dL (200); Creatinine, Serum 1.19 mg/dL (0.55-1.02); EST Glomerular Filtration Rate 46 mL/min (>60); Est Glom Filt Rate - Afr Amer 56 mL/min (>60); Glucose 104 mg/dL (74-106); High Density Lipoprotein 66 mg/dL; Potassium 4.3 mmol/L (3.5-5.1); Sodium Level 139 mmol/L (136-145); Triglycerides 172 mg/dL; Very Low Density Lipoprotein 34 mg/dL (5-40)
[2023-12-17 18:05] LABS: Protein, Urine (Random) 21.9 mg/dL (<11.9); Protein:Creat Ratio 246 mg/g CRE (0-200)
== END | disposition home or self-care (01) ==
LOC: MFPLAB 14:13
PROVIDERS: PCP Family Medicine; Visit Provider Family Medicine
DX: E78.5 Hyperlipidemia, unspecified (principal); I10 Essential (primary) hypertension
CPT/HCPCS: 36415; 80048; 80061; 82570; 84156; 84450; 84460

== ENCOUNTER → 2025-02-24 | Outpatient (CLI) | payer MEDICARE, SELFPAY ==
[2025-02-24 09:11] LABS: AST(SGOT) 23 U/L (<=31); Alanine Aminotransfer ALT/SGPT 22 U/L (<=34); Albumin, Serum 4.0 g/dL (3.4-4.8); Alkaline Phosphatase 106 U/L (35-104); Anion Gap 12 (5-15); BUN 28 mg/dL (4-19); BUN/Creat Ratio 28.4 RATIO (10-20); Calcium,Total 9.2 mg/dL (7.6-11.0); Carbon Dioxide 22.7 mmol/L (21.0-32.0); Chloride 106 mmol/L (98-108); Cholesterol 150 mg/dL (<=200); Globulin 2.6 g/dL (2.2-4.2); Glucose 103 mg/dL (70-99); Low Density Lipoprotein Calc. 57 mg/dL; Potassium 3.8 mmol/L (3.3-5.1); Triglycerides 178 mg/dL; Very Low Density Lipoprotein 36 mg/dL (5-40); cholesterol:hdl ratio screen 2.61
== END | disposition home or self-care (01) ==
PROVIDERS: PCP Family Medicine
DX: N95.9 Unspecified menopausal and perimenopausal disorder (principal); M81.0 Age-related osteoporosis without current pathological fracture; Z13.820 Encounter for screening for osteoporosis
CPT/HCPCS: 36415; 77080; 80053; 80061; 84443